=== PATIENT | female | born 2000 | race Caucasian/White ===

== ENCOUNTER 2025-08-08 16:50 | Emergency (ER) | payer OTHER ==
[2025-08-08] MEDS: Bacitracin/Neomycin/Polymyxin B Oint 0.9 GM U/D Packet ONE (18:41)
[2025-08-08] MEDS: Bacitracin/Neomycin/Polymyxin B Oint 0.9 GM U/D Packet TOP ONE (18:45)
== END 2025-08-08 18:48 | disposition home or self-care (01) ==
LOC: KA.ED 16:50
DX: S61.211A Laceration without foreign body of left index finger without damage to nail, initial encounter (principal); Z79.899 Other long term (current) drug therapy; Z87.891 Personal history of nicotine dependence; W26.8XXA Contact with other sharp object(s), not elsewhere classified, initial encounter; Y93.89 Activity, other specified
CPT/HCPCS: 12001; 99282; J2003